=== PATIENT | female | born 2000 | race Caucasian/White ===

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

== ENCOUNTER 2023-03-30 22:24 | Inpatient (IN) ==
[2023-03-30] MEDS ORDERED: SODIUM CHLORIDE 0.9% 500 ML IV STA (22:35)
[2023-03-30 23:01] LABS: Appearance Urine Cloudy (Clear); Bacteria Urine Automated 1+ (Negative); Bilirubin Urine Negative (Negative); Blood Urine 2+ (Negative); Color Urine Dark Yellow; Epithelial Cell Urine Auto >30 /lpf (0-5); Glucose Urine UA Negative (Negative); Ketones Urine Negative (Negative); Leukocyte Esterase Urine Trace (Negative); Nitrite Urine Negative (Negative); Protein Urine 2+ (Negative); Specific Gravity Urine 1.024 (1.000-1.030); Urobilinogen Urine Negative (Negative); pH Urine 5.5 (4.5-7.5)
[2023-03-30 23:04] LABS: Basophils # (auto) 0.04 K/uL (0.00-0.20); Basophils % (auto) 0.4 %; Eosinophils # (auto) 0.61 K/uL (0.00-0.50); Eosinophils % (auto) 6.4 %; Hematocrit (blood only) 40.9 % (37.0-47.0); Hemoglobin 14.6 g/dl (12.0-16.0); Immature Granulocytes # (auto) 0.03 K/uL (0.01-0.20); Immature Granulocytes % (auto) 0.3 %; Lymphocytes # (auto) 2.23 K/uL (1.20-3.40); Lymphocytes % (auto) 23.5 %; Mean Corpuscular Hemoglobin 32.5 pg (25.0-34.0); Mean Corpuscular Hgb Conc 35.7 g/dL (32.0-36.0); Mean Corpuscular Volume 91.1 fL (80.0-100.0); Mean Platelet Volume 11.4 fL (9.4-12.4); Monocytes # (auto) 0.75 K/uL (0.11-0.59); Monocytes % (auto) 7.9 %; Neutrophils # (auto) 5.82 K/uL (1.40-6.50); Neutrophils % (auto) 61.5 %; Platelet Count 245 K/uL (130-400); RDW Coefficient of Variation 12.1 % (11.5-14.5); RDW Standard Deviation 39.9 fL (36.4-46.3); Red Blood Count 4.49 M/uL (4.20-5.40); White Blood Count 9.48 K/ul (4.8-10.8)
[2023-03-30 23:20] LABS: Albumin Globulin Ratio 1.5 (0.9-2); Albumin Level 4.7 gm/dl (3.4-5.0); Bilirubin,Total 0.6 mg/dl (0.2-1.0); Calcium 9.5 mg/dl (8.6-10.3); Creatinine Clr Calc Pharmacy 113.4 ml/min; Est GFR (African American) 132.1 ml/min; Est GFR (Non-African American) 113.9 ml/min; Globulin 3.1 gm/dl (2.5-4.0); Potassium 3.8 mmol/L (3.5-5.1); Total Protein 7.8 gm/dl (6.0-8.3)
[2023-03-31] MEDS ORDERED: cefTRIAXone SODIUM 2,000 MG/50 ML BAG IV STA (00:35)
[2023-03-31] MEDS ORDERED: SODIUM CHLORIDE 0.9% 1,000 ML IV ONE (00:35)
[2023-03-31] MEDS ORDERED: ACETAMINOPHEN 1,000 MG/100 ML VIAL IV STA (00:36)
[2023-03-31] MEDS ORDERED: KETOROLAC TROMETHAMINE 15 MG/ML VIAL IV STA (00:36)
[2023-03-31] MEDS ORDERED: OPTIRAY 320 100ml IV ONE (01:18)
[2023-03-31 01:28] LABS: Pregnancy Test, Serum Negative (Negative)
--- NOTE | 2023-03-31 01:50 | Emergency Department Note ---
History of Present Illness General Chief complaint: Flank Pain Stated complaint: KIDNEY PAIN Time Seen by Provider: 03/31/23 00:34 History of Present Illness Maximum Pain Intensity: 5 This 22-year-old female with a history of kidney stones and kidney infections presents to the ER complaining of left lower abdominal and flank pain with urinary discomfort for the past few days steadily getting worse. Patient denies chest pain, dyspnea, fevers, vomiting, diarrhea, trauma to the area. No other concerns per patient. Home Medications Medication Instructions Recorded Confirmed Type epinephrine 0.3 mg/0.3 mL See Rx Instructions .Route .COMPLEX 02/23/19 03/31/23 History injection, auto-injector albuterol sulfate 90 mcg/actuation 2 puff inhalation QID PRN Wheezing 03/31/23 03/31/23 History aerosol inhaler levonorgestrel 17.5 mcg/24 hrs 1 device intrauterine ONCE 03/31/23 03/31/23 History (5yrs) 19.5mg intrauterine device (Kyleena) Allergies Allergy/AdvReac Type Severity Reaction Status Date / Time birch Allergy Unknown . Verified 02/23/19 10:08 Past Med/Surg History Medical History (Updated 03/31/23 @ 04:09 by Lauren Ponce PA-C) Closed head injury with brief loss of consciousness Fall History of asthma History of retropharyngeal abscess Injury of low back Laceration of ear Laceration of foot Laceration of lower extremity Right distal ureteral calculus Torus fracture of right wrist Surgical History No pertinent past surgical history Family History Other Diabetes Heart disease Hypertension Social History Smoking Status: Never smoker Hx Alcohol Use: No Hx Substance Use: Yes Last Used Substance Other:: one week ago Preferred Language: Serbian Communication Ability: Effective [employer] Paralegal Required: Yes Beliefs That Will Affect Care: None Feels Safe at Home: Yes Assistive Devices: None Review of Systems A total of 10 systems reviewed and were otherwise negative Physical Exam Vital Signs Vital Signs - 24 hr 03/30/23 22:27 03/31/23 01:39 Temperature 36.9 C Temperature Source Temporal Artery Scan Pulse Rate 91 H Pulse Rate [Apical] 65 Respiratory Rate 18 16 Respiratory Effort / Characteristics Non-Labored Spontaneous Respiratory Depth Normal Respiratory Pattern Regular Blood Pressure 138/92 Blood Pressure [Left Arm] 125/70 Blood Pressure Mean 107 Blood Pressure Mean [Left Arm] 88 Blood Pressure Position Sitting Blood Pressure Position [Left Arm] Semi-fowlers Pulse Oximetry 97 97 Oxygen Delivery Method Room Air Room Air Sepsis Recent Fever Within 48 Hours No Sepsis New/Unexplained Change in Mental Status N/A Sepsis Action Taken by Nursing No Action Required VITALS: Vitals are noted on the nurse's note and reviewed by myself. Vital signs stable. GENERAL: Pleasant female with friend present, in no acute distress, nondiaphoretic, well-developed well-nourished. SKIN: The skin was without rashes, erythema, edema, or bruising. There is no tenting of the skin. Capillary reflex less than 2 seconds. HEAD: Normocephalic atraumatic. EARS: External auditory canals clear, EYES: Pupils equal round and reactive to light and accommodation. Conjunctivae without injection, sclerae without icterus. Extraocular movements intact. NOSE: Patent, turbinates without inflammation or discharge. MOUTH: Mucous membranes moist. Pharynx without erythema or exudate. Uvula midline. Airway patent. Tongue does not deviate. NECK: Supple without nuchal rigidity. No lymphadenopathy. No thyromegaly. Cervical spine is nontender. No JVD. HEART: Regular rate and rhythm LUNGS: Clear to auscultation bilaterally without wheezes, rales or rhonchi. No retractions or accessory muscle use. ABDOMEN: Positive bowel sounds x 4. Normal tympanic percussion. Soft, tender left lower quadrant, left CVA tenderness, without masses or organomegaly. Funes sign negative. No guarding or rebound tenderness. No right CVA tenderness MUSCULOSKELETAL: No muscle atrophy, erythema, or edema noted. NEURO: Patient was alert and oriented to person place and time. Normal sensation to light and sharp touch. No focal neurological deficits. Course Administered Medications Discontinued Medications Sodium Chloride (Nss) 500 mls @ 999 mls/hr IV .Q31M STA Stop: 03/30/23 23:05 Last Infusion: 03/31/23 02:02 Dose: 0 mls/hr Documented By: Admin: 03/31/23 01:36 Dose: 999 mls/hr Documented By: Ceftriaxone Sodium (Rocephin) 2,000 mg in 50 mls @ 100 mls/hr IV NOW STA Stop: 03/31/23 01:04 Last Infusion: 03/31/23 02:42 Dose: 0 mls/hr Documented By: Admin: 03/31/23 01:59 Dose: 100 mls/hr Documented By: Sodium Chloride (Nss) 1,000 mls @ 999 mls/hr IV .Q1H1M ONE Stop: 03/31/23 01:35 Last Infusion: 03/31/23 03:27 Dose: 0 mls/hr Documented By: Admin: 03/31/23 01:59 Dose: 999 mls/hr Documented By: Acetaminophen (Ofirmev) 1,000 mg in 100 mls @ 400 mls/hr IV NOW STA Stop: 03/31/23 00:50 Last Infusion: 03/31/23 02:01 Dose: 0 mls/hr Documented By: Admin: 03/31/23 01:36 Dose: 400 mls/hr Documented By: Ioversol (Optiray 320 100ml) 100 ml IV ONCE ONE Stop: 03/31/23 01:19 Last Admin: 03/31/23 01:18 Dose: 91 ml Documented By: JEFF Ketorolac Tromethamine (Ketorolac Tromethamine 15 Mg/Ml Vial) 10 mg IV NOW STA Stop: 03/31/23 00:37 Last Admin: 03/31/23 00:45 Dose: 10 mg Documented By: Medical Decision Making Medical Records Attestation: I reviewed the patient's medical records. Home Medications Current Medication List: was personally reviewed by [place] Laboratory Data Attestation: I reviewed the patient's lab results. 03/30/23 22:44 03/30/23 22:44 Lab Results 03/30/23 03/30/23 03/30/23 Range/Units 22:40 22:44 22:44 WBC 9.48 (4.8-10.8) K/ul RBC 4.49 (4.20-5.40) M/uL Hgb 14.6 (12.0-16.0) g/dl Hct 40.9 (37.0-47.0) % MCV 91.1 (80.0-100.0) fL MCH 32.5 (25.0-34.0) pg MCHC 35.7 (32.0-36.0) g/dL RDW Std Deviation 39.9 (36.4-46.3) fL RDW Coeff of Antoinette 12.1 (11.5-14.5) % Plt Count 245 (130-400) K/uL MPV 11.4 (9.4-12.4) fL Immature Gran % (Auto) 0.3 % Neut % (Auto) 61.5 % Lymph % (Auto) 23.5 % Dickenson % (Auto) 7.9 % Eos % (Auto) 6.4 % Baso % (Auto) 0.4 % Neut # (Auto) 5.82 (1.40-6.50) K/uL Lymph # (Auto) 2.23 (1.20-3.40) K/uL Dickenson # (Auto) 0.75 H (0.11-0.59) K/uL Eos # (Auto) 0.61 H (0.00-0.50) K/uL Baso # (Auto) 0.04 (0.00-0.20) K/uL Immature Gran # (Auto) 0.03 (0.01-0.20) K/uL Sodium 137 (136-145) mmol/L Potassium 3.8 (3.5-5.1) mmol/L Chloride 105 (98-107) mmol/L Carbon Dioxide 24 (21-32) mmol/L Anion Gap 8 (3-11) BUN 12 (6-23) mg/dl Creatinine 0.75 (0.6-1.2) mg/dl Est Cr Clr Drug Dosing 113.4 ml/min Est GFR ( Amer) 132.1 ml/min Est GFR (Non-Af Amer) 113.9 ml/min BUN/Creatinine Ratio 16.0 (10-20) Glucose 135 H (70-99(Fasting)) mg/dl Calcium 9.5 (8.6-10.3) mg/dl Total Bilirubin 0.6 (0.2-1.0) mg/dl AST 23 (13-39) U/L ALT 17 (7-52) U/L Alkaline Phosphatase 99 (34-104) U/L Total Protein 7.8 (6.0-8.3) gm/dl Albumin 4.7 (3.4-5.0) gm/dl Globulin 3.1 (2.5-4.0) gm/dl Albumin/Globulin Ratio 1.5 (0.9-2) HCG, Qual (Negative) Urine Color Dark Yellow Urine Appearance Cloudy A (Clear) Urine pH 5.5 (4.5-7.5) Ur Specific Reform 1.024 (1.000-1.030) Urine Protein 2+ H (Negative) Urine Glucose (UA) Negative (Negative) Urine Ketones Negative (Negative) Urine Blood 2+ H (Negative) Urine Nitrite Negative (Negative) Urine Bilirubin Negative (Negative) Urine Urobilinogen Negative (Negative) Ur Leukocyte Esterase Trace H (Negative) Urine WBC (Auto) 10-30 H (0-5) /hpf Urine RBC (Auto) 10-30 H (0-4) /hpf U Hyaline Cast (Auto) 10-30 H (0-5) /lpf U Epithel Cells (Auto) >30 H (0-5) /lpf Urine Bacteria (Auto) 1+ H (Negative) POC Ur Test (NEG) 03/30/23 03/31/23 Range/Units 22:44 00:55 WBC (4.8-10.8) K/ul RBC (4.20-5.40) M/uL Hgb (12.0-16.0) g/dl Hct (37.0-47.0) % MCV (80.0-100.0) fL MCH (25.0-34.0) pg MCHC (32.0-36.0) g/dL RDW Std Deviation (36.4-46.3) fL RDW Coeff of Antoinette (11.5-14.5) % Plt Count (130-400) K/uL MPV (9.4-12.4) fL Immature Gran % (Auto) % Neut % (Auto) % Lymph % (Auto) % Dickenson % (Auto) % Eos % (Auto) % Baso % (Auto) % Neut # (Auto) (1.40-6.50) K/uL Lymph # (Auto) (1.20-3.40) K/uL Dickenson # (Auto) (0.11-0.59) K/uL Eos # (Auto) (0.00-0.50) K/uL Baso # (Auto) (0.00-0.20) K/uL Immature Gran # (Auto) (0.01-0.20) K/uL Sodium (136-145) mmol/L Potassium (3.5-5.1) mmol/L Chloride (98-107) mmol/L Carbon Dioxide (21-32) mmol/L Anion Gap (3-11) BUN (6-23) mg/dl Creatinine (0.6-1.2) mg/dl Est Cr Clr Drug Dosing ml/min Est GFR ( Amer) ml/min Est GFR (Non-Af Amer) ml/min BUN/Creatinine Ratio (10-20) Glucose (70-99(Fasting)) mg/dl Calcium (8.6-10.3) mg/dl Total Bilirubin (0.2-1.0) mg/dl AST (13-39) U/L ALT (7-52) U/L Alkaline Phosphatase (34-104) U/L Total Protein (6.0-8.3) gm/dl Albumin (3.4-5.0) gm/dl Globulin (2.5-4.0) gm/dl Albumin/Globulin Ratio (0.9-2) HCG, Qual Negative (Negative) Urine Color Urine Appearance (Clear) Urine pH (4.5-7.5) Ur Specific Reform (1.000-1.030) Urine Protein (Negative) Urine Glucose (UA) (Negative) Urine Ketones (Negative) Urine Blood (Negative) Urine Nitrite (Negative) Urine Bilirubin (Negative) Urine Urobilinogen (Negative) Ur Leukocyte Esterase (Negative) Urine WBC (Auto) (0-5) /hpf Urine RBC (Auto) (0-4) /hpf U Hyaline Cast (Auto) (0-5) /lpf U Epithel Cells (Auto) (0-5) /lpf Urine Bacteria (Auto) (Negative) POC Ur Test NEG (NEG) Imaging Data Attestation: I personally reviewed and interpreted this imaging study as follows: Radiologist's Impression: Abdomen/Pelvis CT 03/31/23 00:35 Exam(s): CT ABDOMEN + PELVIS With Contrast IV Amt: 91 ML OPTIRAY 320 EXAM: CT Abdomen and Pelvis With Intravenous Contrast CLINICAL HISTORY: Reason for exam: left flank pain, uti. TECHNIQUE: Axial computed tomography images of the abdomen and pelvis with intravenous contrast. CTDI is 14.61 mGy and DLP is 698.34 mGy-cm. Automated exposure control was utilized for the study. A dose lowering technique was utilized adhering to the principles of ALARA. CONTRAST: Patient received 91 ML OPTIRAY 320 of IV contrast COMPARISON: None. FINDINGS: Lung bases: Clear. Liver: Mild fatty infiltration. Gallbladder and bile ducts: Normal gallbladder. No ductal dilation. Pancreas: No ductal dilation. Spleen: Unremarkable. Adrenals: Unremarkable. Kidneys and ureters: Mild left hydroureteronephrosis, secondary to a 1 mm stone in the left ureterovesical junction, nearly entering bladder. No pyelonephritis or perinephric abscess. Mild left ureteral wall enhancement is nonspecific, may be due to obstruction, cannot rule out infected stone. Stomach and bowel: Moderate to severe fecal loading of the colon. No obstruction. Appendix: No acute appendicitis. Intraperitoneal space: No free air or fluid. Bones/joints: No acute fracture. Soft tissues: Unremarkable. Vasculature: No aortic aneurysm. Lymph nodes: No enlarged lymph nodes. Bladder: No stones. Reproductive: Unremarkable as visualized. IMPRESSION: 1. 1 mm mildly obstructing stone in the left UVJ. 2. Mildly enhancing left ureter, nonspecific, cannot rule out infected stone. No pyelonephritis or perinephric abscess. Electronically signed by: Rosie Bailey M.D. 03/31/23 03:49 AM MDM Narrative Prior records/ancillary studies reviewed. Triage Nursing notes reviewed. Additional history obtained from nursing. The patient's history was concerning for abdominal pain. Differential diagnosis: Etiologies such as appendicitis, diverticulitis, PUD, biliary pathology, UTI, pancreatitis, obstruction, mesenteric ischemia, aortic pathology, infections, inflammatory bowel disease, renal colic, as well as others were entertained. Physical examination findings: As above. ER treatment provided: An order was placed for continuous cardiac monitoring. The monitor shows a rate of 60-100 with a sinus rhythm per my Independent interpretation. IV fluids, Zofran, Toradol, Rocephin was ordered On reassessment the patient felt better. Diagnostics interpreted by me: The labs Independently Interpreted by myself revealed no worrisome leukocytosis, urine concerning for infection sent for culture. Negative hCG No prior urine culture for review Imaging studies: CT the abdomen pelvis concerning for left 1 bilateral mildly obstructing stone at the left UVJ and concerns for bladder infection per my independent interpretation and report was reviewed as above. Consultation: A consultation was placed with the hospitalist. The case was discussed and diagnostics were reviewed. The patient was evaluated in the ER for further treatment. Exam and history seem consistent with infected kidney stone. Patient was started on antibiotics as above. Labs and diagnostics are independent turbid by myself. Medicine is consulted and case discussed. Patient be mated to the medical service for further evaluation and treatment. Patient is agreeable. She was afebrile nontoxic. She is well-appearing. No other concerns per patient. By the evaluation outlined above emergent etiologies such as appendi citis, diverticulitis, PUD, biliary pathology, pancreatitis, obstruction, mesenteric ischemia, aortic pathology, inflammatory bowel disease, as well as others were deemed relatively unlikely. The pt informed about the findings as listed above. All questions were answered and pleased with the treatment. The chart was completed utilizing [employer] Speech voice recognition software. Grammatical errors, random word insertions, pronoun errors, and incomplete sentences are an occassional consequence of this system due to software limitations, ambient noise, and hardware issues. Any formal questions or concerns about the content, text, or information contained within the body of this dictation should be directly addressed to the physician higher level teaching assistant for clarification. Impression & Plan Renal colic on left side, Ureterolithiasis, Acute UTI Discharge Plan Visit Data Chief Complaint: Flank Pain Stated Complaint: KIDNEY PAIN ED Provider: Ly Ponce ED Midlevel Provider: Lauren Ponce Discharge Problem: Renal colic on left side, Ureterolithiasis, Acute UTI Patient Disposition: Admitted As Inpatient Condition: Good Forms Stand Alone Forms: [employer] Prescriptions Prescriptions: No Action epinephrine 0.3 mg/0.3 mL auto-injector See Rx Instructions .ROUTE .COMPLEX Rx Instructions: (directions unknown) To use for Birch Allergy Kyleena 17.5 mcg/24 hrs (5 yrs) 19.5 mg intrauterine device 1 device INTRAUTERINE ONCE albuterol sulfate 90 mcg/actuation HFA aerosol inhaler 2 puff INHALATION QID PRN (Reason: Wheezing) Referrals Referrals: Kaz Stein MD [Primary Care Provider] -
--- NOTE | 2023-03-31 03:49 | CT Scan Report ---
Exam(s): CT ABDOMEN + PELVIS With Contrast IV Amt: 91 ML OPTIRAY 320 EXAM: CT Abdomen and Pelvis With Intravenous Contrast CLINICAL HISTORY: Reason for exam: left flank pain, uti. TECHNIQUE: Axial computed tomography images of the abdomen and pelvis with intravenous contrast. CTDI is 14.61 mGy and DLP is 698.34 mGy-cm. Automated exposure control was utilized for the study. A dose lowering technique was utilized adhering to the principles of ALARA. CONTRAST: Patient received 91 ML OPTIRAY 320 of IV contrast COMPARISON: None. FINDINGS: Lung bases: Clear. Liver: Mild fatty infiltration. Gallbladder and bile ducts: Normal gallbladder. No ductal dilation. Pancreas: No ductal dilation. Spleen: Unremarkable. Adrenals: Unremarkable. Kidneys and ureters: Mild left hydroureteronephrosis, secondary to a 1 mm stone in the left ureterovesical junction, nearly entering bladder. No pyelonephritis or perinephric abscess. Mild left ureteral wall enhancement is nonspecific, may be due to obstruction, cannot rule out infected stone. Stomach and bowel: Moderate to severe fecal loading of the colon. No obstruction. Appendix: No acute appendicitis. Intraperitoneal space: No free air or fluid. Bones/joints: No acute fracture. Soft tissues: Unremarkable. Vasculature: No aortic aneurysm. Lymph nodes: No enlarged lymph nodes. Bladder: No stones. Reproductive: Unremarkable as visualized. IMPRESSION: 1. 1 mm mildly obstructing stone in the left UVJ. 2. Mildly enhancing left ureter, nonspecific, cannot rule out infected stone. No pyelonephritis or perinephric abscess. Electronically signed by: Rosie Bailey M.D. 03/31/23 03:49 AM
[2023-03-31] MEDS ORDERED: ONDANSETRON INJ 2 MG/ML 2 ML VIAL IV STA (04:08)
--- NOTE | 2023-03-31 06:02 | History & Physical Report ---
Date of Service March 31, 2023 Assessment & Plan (1) Renal colic on left side: Plan: Renal colic on left side History of kidney stones Ct scan: 1. 1 mm mildly obstructing stone in the left UVJ. 2. Mildly enhancing left ureter, nonspecific, cannot rule out infected stone. No pyelonephritis or perinephric abscess. N.p.o., IV fluids. IV Rocephin, IV Toradol as needed Urology consult History of asthma Albuterol as needed DVT prophylax SCDs Disposition MedSurg Full code History of Present Illness Chief Complaint: Left renal colic Primary Care Provider: Kaz Stein MD 22-year-old female with past med significant for asthma mild persistent, history of depression, history of kidney stones presents with left flank pain since Thursday associated with nausea and vomiting. No fevers ,no hematuria,no chest pain or shortness of breath. No cough, no other complaints.. Past medical history as mentioned above Past surgical history. Colonoscopy. EGD. Hemorrhoidectomy. Social history. No smoking. No alcohol. No drug use. Family history. Mother has allergies. Depression. Maternal grandfather had celiac disease and hypertension Allergies Allergy/AdvReac Type Severity Reaction Status Date / Time birch Allergy Unknown . Verified 02/23/19 10:08 Home Medications Medication Instructions Recorded Confirmed Type epinephrine 0.3 mg/0.3 mL See Rx Instructions .Route .COMPLEX 02/23/19 03/31/23 History injection, auto-injector albuterol sulfate 90 mcg/actuation 2 puff inhalation QID PRN Wheezing 03/31/23 03/31/23 History aerosol inhaler levonorgestrel 17.5 mcg/24 hrs 1 device intrauterine ONCE 03/31/23 03/31/23 History (5yrs) 19.5mg intrauterine device (Kyleena) Past Med/Surg History Medical History (Updated 03/31/23 @ 04:09 by Lauren Ponce PA-C) Closed head injury with brief loss of consciousness Fall History of asthma History of retropharyngeal abscess Injury of low back Laceration of ear Laceration of foot Laceration of lower extremity Right distal ureteral calculus Torus fracture of right wrist Surgical History No pertinent past surgical history Family History Other Diabetes Heart disease Hypertension Social History Smoking Status: Current every day smoker Tobacco Type: E-cigarettes / Vaping Hx Alcohol Use: Yes Hx Substance Use: No Preferred Language: Nicaraguan Communication Ability: Effective Windscreen Fitter Required: No Beliefs That Will Affect Care: None Current Living Situation: Parent Other Information That Helps Us Care for You: No Feels Safe at Home: Yes Safety Concerns: Feels Safe At This Time Assistive Devices: Glasses Review of Systems Review of Systems: All systems reviewed & are unremarkable except as noted in HPI & below Physical Exam Physical Exam: General- Not in distress Head- atraumatic Eyes- PERRL. ENT- oropharynx clear Neck- supple, no JVD. Lungs- clear to auscultation , no wheezing or crackles Heart- regular rhythm; no murmur, no gallop. Abdomen- normal bowel sounds, soft, nontender, no distension Extremities- no pretibial edema, no erythema seen. Neuro- alert, oriented ; PERRL, no facial palsy; no dysarthria;. Skin- warm & dry Results & Data Results & Data Vital Signs (Past 12 Hours) Vital Signs Temp Pulse Pulse Resp BP BP Pulse Ox 03/31/23 05:01 63 18 119/68 96 03/31/23 04:30 64 13 129/98 97 03/31/23 04:13 73 20 127/93 97 03/31/23 04:02 78 98 03/31/23 01:39 65 16 125/70 97 03/30/23 22:27 36.9 C 91 H 18 138/92 97 O2 Del Method 03/31/23 05:01 Room Air 03/31/23 04:30 Room Air 03/31/23 04:13 Room Air 03/31/23 04:02 Room Air 03/31/23 01:39 Room Air 03/30/23 22:27 Room Air Diagnostic Findings Laboratory Results WBC 9.48 K/ul (4.8-10.8) 03/30/23 22:44 RBC 4.49 M/uL (4.20-5.40) 03/30/23 22:44 Hgb 14.6 g/dl (12.0-16.0) 03/30/23 22:44 Hct 40.9 % (37.0-47.0) 03/30/23 22:44 MCV 91.1 fL (80.0-100.0) 03/30/23 22:44 MCH 32.5 pg (25.0-34.0) 03/30/23 22:44 MCHC 35.7 g/dL (32.0-36.0) 03/30/23 22:44 RDW Std Deviation 39.9 fL (36.4-46.3) 03/30/23 22:44 RDW Coeff of Antoinette 12.1 % (11.5-14.5) 03/30/23 22:44 Plt Count 245 K/uL (130-400) 03/30/23 22:44 MPV 11.4 fL (9.4-12.4) 03/30/23 22:44 Immature Gran % (Auto) 0.3 % 03/30/23 22:44 Neut % (Auto) 61.5 % 03/30/23 22:44 Lymph % (Auto) 23.5 % 03/30/23 22:44 Sebastian % (Auto) 7.9 % 03/30/23 22:44 Eos % (Auto) 6.4 % 03/30/23 22:44 Baso % (Auto) 0.4 % 03/30/23 22:44 Neut # (Auto) 5.82 K/uL (1.40-6.50) 03/30/23 22:44 Lymph # (Auto) 2.23 K/uL (1.20-3.40) 03/30/23 22:44 Sebastian # (Auto) 0.75 K/uL (0.11-0.59) H 03/30/23 22:44 Eos # (Auto) 0.61 K/uL (0.00-0.50) H 03/30/23 22:44 Baso # (Auto) 0.04 K/uL (0.00-0.20) 03/30/23 22:44 Immature Gran # (Auto) 0.03 K/uL (0.01-0.20) 03/30/23 22:44 Sodium 137 mmol/L (136-145) 03/30/23 22:44 Potassium 3.8 mmol/L (3.5-5.1) 03/30/23 22:44 Chloride 105 mmol/L (98-107) 03/30/23 22:44 Carbon Dioxide 24 mmol/L (21-32) 03/30/23 22:44 Anion Gap 8 (3-11) 03/30/23 22:44 BUN 12 mg/dl (6-23) 03/30/23 22:44 Creatinine 0.75 mg/dl (0.6-1.2) 03/30/23 22:44 Est Cr Clr Drug Dosing 113.4 ml/min 03/30/23 22:44 Est GFR ( Amer) 132.1 ml/min 03/30/23 22:44 Est GFR (Non-Af Amer) 113.9 ml/min 03/30/23 22:44 BUN/Creatinine Ratio 16.0 (10-20) 03/30/23 22:44 Glucose 135 mg/dl (70-99(Fasting)) H 03/30/23 22:44 Calcium 9.5 mg/dl (8.6-10.3) 03/30/23 22:44 Total Bilirubin 0.6 mg/dl (0.2-1.0) 03/30/23 22:44 AST 23 U/L (13-39) 03/30/23 22:44 ALT 17 U/L (7-52) 03/30/23 22:44 Alkaline Phosphatase 99 U/L (34-104) 03/30/23 22:44 Total Protein 7.8 gm/dl (6.0-8.3) 03/30/23 22:44 Albumin 4.7 gm/dl (3.4-5.0) 03/30/23 22:44 Globulin 3.1 gm/dl (2.5-4.0) 03/30/23 22:44 Albumin/Globulin Ratio 1.5 (0.9-2) 03/30/23 22:44 HCG, Qual Negative (Negative) 03/30/23 22:44 Urine Color Dark Yellow 03/30/23 22:40 Urine Appearance Cloudy (Clear) A 03/30/23 22:40 Urine pH 5.5 (4.5-7.5) 03/30/23 22:40 Ur Specific [place] 1.024 (1.000-1.030) 03/30/23 22:40 Urine Protein 2+ (Negative) H 03/30/23 22:40 Urine Glucose (UA) Negative (Negative) 03/30/23 22:40 Urine Ketones Negative (Negative) 03/30/23 22:40 Urine Blood 2+ (Negative) H 03/30/23 22:40 Urine Nitrite Negative (Negative) 03/30/23 22:40 Urine Bilirubin Negative (Negative) 03/30/23 22:40 Urine Urobilinogen Negative (Negative) 03/30/23 22:40 Ur Leukocyte Esterase Trace (Negative) H 03/30/23 22:40 Urine WBC (Auto) 10-30 /hpf (0-5) H 03/30/23 22:40 Urine RBC (Auto) 10-30 /hpf (0-4) H 03/30/23 22:40 U Hyaline Cast (Auto) 10-30 /lpf (0-5) H 03/30/23 22:40 U Epithel Cells (Auto) >30 /lpf (0-5) H 03/30/23 22:40 Urine Bacteria (Auto) 1+ (Negative) H 03/30/23 22:40 POC Ur Test NEG (NEG) 03/31/23 00:55 Impressions Abdomen/Pelvis CT 03/31/23 00:35 Exam(s): CT ABDOMEN + PELVIS With Contrast IV Amt: 91 ML OPTIRAY 320 EXAM: CT Abdomen and Pelvis With Intravenous Contrast CLINICAL HISTORY: Reason for exam: left flank pain, uti. TECHNIQUE: Axial computed tomography images of the abdomen and pelvis with intravenous contrast. CTDI is 14.61 mGy and DLP is 698.34 mGy-cm. Automated exposure control was utilized for the study. A dose lowering technique was utilized adhering to the principles of ALARA. CONTRAST: Patient received 91 ML OPTIRAY 320 of IV contrast COMPARISON: None. FINDINGS: Lung bases: Clear. Liver: Mild fatty infiltration. Gallbladder and bile ducts: Normal gallbladder. No ductal dilation. Pancreas: No ductal dilation. Spleen: Unremarkable. Adrenals: Unremarkable. Kidneys and ureters: Mild left hydroureteronephrosis, secondary to a 1 mm stone in the left ureterovesical junction, nearly entering bladder. No pyelonephritis or perinephric abscess. Mild left ureteral wall enhancement is nonspecific, may be due to obstruction, cannot rule out infected stone. Stomach and bowel: Moderate to severe fecal loading of the colon. No obstruction. Appendix: No acute appendicitis. Intraperitoneal space: No free air or fluid. Bones/joints: No acute fracture. Soft tissues: Unremarkable. Vasculature: No aortic aneurysm. Lymph nodes: No enlarged lymph nodes. Bladder: No stones. Reproductive: Unremarkable as visualized. IMPRESSION: 1. 1 mm mildly obstructing stone in the left UVJ. 2. Mildly enhancing left ureter, nonspecific, cannot rule out infected stone. No pyelonephritis or perinephric abscess. Electronically signed by: Rosie Bailey M.D. 03/31/23 03:49 AM Code Status & VTE Plan VTE Prophylaxis Plan VTE Prophylaxis will be ordered: Yes
[2023-03-31] MEDS ORDERED: ACETAMINOPHEN 325 MG TAB PO PRN (06:21)
[2023-03-31] MEDS ORDERED: KETOROLAC TROMETHAMINE 15 MG/ML VIAL IV PRN (06:21)
[2023-03-31] MEDS ORDERED: ONDANSETRON INJ 2 MG/ML 2 ML VIAL IV PRN (06:21)
[2023-03-31] MEDS ORDERED: ALBUTEROL HFA 8 GM INHALER INH PRN (06:21)
[2023-03-31] MEDS ORDERED: POLYETHYLENE (MIRALAX) 17 GM PACK PO PRN (06:21)
[2023-03-31] MEDS: SODIUM CHLORIDE 0.9% 1,000 ML IV SCH ×2 (06:38→13:33)
[2023-03-31 07:43] LABS: Basophils # (auto) 0.02 K/uL (0.00-0.20); Basophils % (auto) 0.3 %; Eosinophils # (auto) 0.62 K/uL (0.00-0.50); Eosinophils % (auto) 9.4 %; Hematocrit (blood only) 36.9 % (37.0-47.0); Immature Granulocytes # (auto) 0.01 K/uL (0.01-0.20); Immature Granulocytes % (auto) 0.2 %; Lymphocytes # (auto) 1.85 K/uL (1.20-3.40); Lymphocytes % (auto) 27.9 %; Mean Corpuscular Hemoglobin 32.2 pg (25.0-34.0); Mean Corpuscular Hgb Conc 35.2 g/dL (32.0-36.0); Mean Corpuscular Volume 91.3 fL (80.0-100.0); Mean Platelet Volume 10.8 fL (9.4-12.4); Monocytes # (auto) 0.61 K/uL (0.11-0.59); Monocytes % (auto) 9.2 %; Neutrophils # (auto) 3.51 K/uL (1.40-6.50); Platelet Count 207 K/uL (130-400); RDW Coefficient of Variation 12.1 % (11.5-14.5); RDW Standard Deviation 40.4 fL (36.4-46.3); Red Blood Count 4.04 M/uL (4.20-5.40); White Blood Count 6.62 K/ul (4.8-10.8)
[2023-03-31 07:59] LABS: Anion Gap 6 (3-11); Blood Urea Nitrogen 9 mg/dl (6-23); Calcium 8.6 mg/dl (8.6-10.3); Carbon Dioxide 24 mmol/L (21-32); Chloride 110 mmol/L (98-107); Creatinine Clr Calc Pharmacy 145.2 ml/min; Est GFR (African American) > 150.0 ml/min; Est GFR (Non-African American) 130.3 ml/min; Glucose 101 mg/dl (70-99(Fasting)); Magnesium 1.9 mg/dl (1.7-2.4); Potassium 3.7 mmol/L (3.5-5.1); Sodium 140 mmol/L (136-145)
--- NOTE | 2023-03-31 10:36 | Urology Consultation ---
Date of Consultation March 31, 2023 Assessment & Plan (1) Renal colic on left side: (2) Ureterolithiasis: (3) UTI (urinary tract infection): Plan 22yo/F admitted with intractable left flank pain, concern for UTI, small left ureteral stone. Afebrile and hemodynamically stable. Labs reviewed No leukocytosis and normal renal function. Urinalysis with 3+ blood, trace LE, 1+ bacteria, urine culture pending. On Ceftriaxone. Discussed options for acute stone management. Discussed cystoscopy, stent placement, possible stone treatment. Ureteral stents were discussed as well as postoperative issues and pain management. Discussed trial of passage with max medical therapy. Discussed stone passage rates given size and location. Risks and benefits of each were discussed. Patient prefers trial of passage with max expulsion therapy which is reasonable given stone size and location. No plan for urological intervention at this time. Continue supportive care, pain management, antibiotics. Strain all urine. Urology will follow. History of Present Illness Attending Physician: Abiel Bernabe MD History of Present Illness 22-year-old female with past medical hx significant for asthma, history of depression, history of kidney stones who presented to the ED with left flank pain since Thursday with associated nausea andvomiting. On arrival she was afebrile and hemodynamically stable. Labs showing no leukocytosis and normal renal function. Urinalysis with 2+ blood, trace LE, 1+ bacteria, negative nitrite. Urine culture pending. CT abdomen pelvis obtained and notable for a 1 mm mild obstructive stone in the left UVJ. Patient admitted to medicine service for pain management. CT abdomen pelvis 1. 1 mm mildly obstructing stone in the left UVJ. 2. Mildly enhancing left ureter, nonspecific, cannot rule out infected stone. No pyelonephritis or perinephric abscess. Patient examined at bedside this AM. Awake, resting in bed on arrival. No acute distress. Reports pain has significantly improved since arrival. Denies fevers, chills, nausea, vomiting at present. Voiding without issue. Denies hematuria, some dysuria. Has been NPO. Patient reports a history of stones with spontaneous passage. Allergies Allergy/AdvReac Type Severity Reaction Status Date / Time birch Allergy Unknown . Verified 02/23/19 10:08 Home Medications Medication Instructions Recorded Confirmed Type epinephrine 0.3 mg/0.3 mL See Rx Instructions .Route .COMPLEX 02/23/19 03/31/23 History injection, auto-injector albuterol sulfate 90 mcg/actuation 2 puff inhalation QID PRN Wheezing 03/31/23 03/31/23 History aerosol inhaler levonorgestrel 17.5 mcg/24 hrs 1 device intrauterine ONCE 03/31/23 03/31/23 History (5yrs) 19.5mg intrauterine device (Kyleena) Patient History Medical History (Updated 03/31/23 @ 04:09 by Lauren Ponce PA-C) Closed head injury with brief loss of consciousness Fall History of asthma History of retropharyngeal abscess Injury of low back Laceration of ear Laceration of foot Laceration of lower extremity Right distal ureteral calculus Torus fracture of right wrist Surgical History No pertinent past surgical history Family History Other Diabetes Heart disease Hypertension Social History Smoking Status: Current every day smoker Tobacco Type: E-cigarettes / Vaping Hx Alcohol Use: Yes Hx Substance Use: No Preferred Language: Swedish Communication Ability: Effective Cardiac Rehabilitation Specialist Required: No Beliefs That Will Affect Care: None Current Living Situation: Parent Other Information That Helps Us Care for You: No Feels Safe at Home: Yes Safety Concerns: Feels Safe At This Time Assistive Devices: Glasses Review of Systems Review of Systems: All systems reviewed & are unremarkable except as noted in HPI & below Physical Exam Constitutional: well developed and well nourished; no acute distress Respiratory: normal respiratory effort; no respiratory distress and no labored breathing Musculoskeletal: Head/Neck/Chest: normocephalic Skin: No visible rashes or lesions to exposed skin areas Neurologic: moves all extremities and awake Psychiatric: A+Ox3, euthymic affect Results & Data Vital Signs (Past 12 Hours) Vital Signs Temp Pulse Pulse Resp BP BP Pulse Ox 03/31/23 08:14 70 15 137/86 97 03/31/23 07:13 62 15 142/99 H 97 03/31/23 06:23 36.6 C 69 18 129/74 97 03/31/23 05:01 63 18 119/68 96 03/31/23 04:30 64 13 129/98 97 03/31/23 04:13 73 20 127/93 97 03/31/23 04:02 78 98 03/31/23 01:39 65 16 125/70 97 03/30/23 22:27 36.9 C 91 H 18 138/92 97 O2 Del Method 03/31/23 08:14 Room Air 03/31/23 07:13 Room Air 03/31/23 06:23 Room Air 03/31/23 05:01 Room Air 03/31/23 04:30 Room Air 03/31/23 04:13 Room Air 03/31/23 04:02 Room Air 03/31/23 01:39 Room Air 03/30/23 22:27 Room Air PG Care Time/CCT Total # of Minutes Spent Total Time Spent with Patient: Total time spent is greater than 50% in coordination of care (as documented) at patient's floor/unit and/or counseling patient: Coding Level of Care Code 36051 IN/OBS CONSULT LVL 3,45M Diagnoses Renal colic on left side N23 Ureterolithiasis N20.1 UTI (urinary tract infection) N39.0 Hematuria presence: without hematuria Urinary tract infection type: site unspecified (3) UTI (urinary tract infection) Hematuria presence: without hematuria Urinary tract infection type: site unspecified Qualified Code(s): N39.0 - Urinary tract infection, site not specified
--- NOTE | 2023-03-31 12:21 | Hospitalist Progress Note ---
Date of Service March 31, 2023 Assessment & Plan (1) Renal colic on left side: Plan: Renal colic on left side History of kidney stones Ct scan: 1. 1 mm mildly obstructing stone in the left UVJ. 2. Mildly enhancing left ureter, nonspecific, cannot rule out infected stone. No pyelonephritis or perinephric abscess. N.p.o., IV fluids. IV Rocephin, IV Toradol as needed UA suggestive of infection-urine culture has been sent and awaiting result Has been on intravenous ceftriaxone Appreciate urology input and recommendation for conservative management Patient is agreeable with that and wants to go home this afternoon She was advised to drink more fluid and see how she feels in the afternoon before going home Condition may get worse that she may need to be back History of asthma Albuterol as needed DVT prophylax SCDs Disposition MedSurg Full code Discussed with the mom and the patient in detail Admission and Anticipated Discharge Date Admission Date: March 31, 2023 Subjective 03/31/2023 Patient was seen and examined in emergency room in presence of the mother Still complains of back pain more on the left than the right side No nausea no vomiting and no fever and or chills Has had dysuria but no blood in the urine Review of Systems Review of Systems: All systems reviewed and are unremarkable except as noted below Physical Exam Physical Exam: Lying in bed with minimal distress due to back pain and hypogastric pain Constitutional: + ill appearing and average body habitus Eyes: PERRL, conjunctivae normal, anicteric sclerae ENMT: external ear and nose normal, oropharynx normal Neck: trachea midline, no thyromegaly Respiratory: no respiratory distress Auscultation: lungs clear to auscultation bilaterally; no crackles Cardiovascular: Rate/Rhythm: regular rate and regular rhythm; not tachycardic Heart Sounds: normal S1 and normal S2; no murmur Extremities: no edema Gastrointestinal (Abdomen): Inspection/Auscultation: normal bowel sounds; abdomen not distended Percussion/Palpation: + abdomen tender (Lower abdomen especially hypogastrium and bilaterally renal angles) Musculoskeletal: No acute arthritis involving any of the joint Neurologic: normal touch/pain/proprioception and moves all extremities; no focal motor deficits Psychiatric: A+Ox3, euthymic affect Lymphatic: no cervical or axillary lymphadenopathy Results & Data Results & Data Vital Signs (Past 12 Hours) Vital Signs Temp Pulse Pulse Resp BP BP Pulse Ox 03/31/23 11:46 63 15 122/81 98 03/31/23 10:44 65 15 131/84 97 03/31/23 09:17 79 15 129/75 98 03/31/23 08:14 70 15 137/86 97 03/31/23 07:13 62 15 142/99 H 97 03/31/23 06:23 36.6 C 69 18 129/74 97 03/31/23 05:01 63 18 119/68 96 03/31/23 04:30 64 13 129/98 97 03/31/23 04:13 73 20 127/93 97 03/31/23 04:02 78 98 03/31/23 01:39 65 16 125/70 97 O2 Del Method 03/31/23 11:46 Room Air 03/31/23 10:44 Room Air 03/31/23 09:17 Room Air 03/31/23 08:14 Room Air 03/31/23 07:13 Room Air 03/31/23 06:23 Room Air 03/31/23 05:01 Room Air 03/31/23 04:30 Room Air 03/31/23 04:13 Room Air 03/31/23 04:02 Room Air 03/31/23 01:39 Room Air Laboratory Results Short CBC 03/30/23 03/31/23 Range/Units 22:44 07:23 WBC 9.48 6.62 (4.8-10.8) K/ul Hgb 14.6 13.0 (12.0-16.0) g/dl Hct 40.9 36.9 L (37.0-47.0) % Plt Count 245 207 (130-400) K/uL BMP 03/30/23 03/31/23 22:44 07:23 Sodium 137 140 Potassium 3.8 3.7 Chloride 105 110 H Carbon Dioxide 24 24 BUN 12 9 Creatinine 0.75 0.60 Glucose 135 H 101 H Calcium 9.5 8.6 Liver Function 03/30/23 Range/Units 22:44 Total Bilirubin 0.6 (0.2-1.0) mg/dl AST 23 (13-39) U/L ALT 17 (7-52) U/L Alkaline Phosphatase 99 (34-104) U/L Albumin 4.7 (3.4-5.0) gm/dl Urine 03/30/23 Range/Units 22:40 Urine Color Dark Yellow Urine Appearance Cloudy A (Clear) Urine pH 5.5 (4.5-7.5) Ur Specific [place] 1.024 (1.000-1.030) Urine Protein 2+ H (Negative) Urine Glucose (UA) Negative (Negative) Medications Administered Current Inpatient Medications Acetaminophen (Acetaminophen 325 Mg Tab) 650 mg PO Q4H PRN PRN Reason: pain/fever Stop: 04/30/23 06:20 Last Admin: 03/31/23 10:24 Dose: 650 mg Albuterol (Albuterol Hfa 8 Gm Inhaler) 2 puffs INH QIDR PRN PRN Reason: Wheezing Stop: 04/30/23 06:20 Sodium Chloride (Nss) 1,000 mls @ 125 mls/hr IV .Q8H MARINA Stop: 04/30/23 06:20 Last Admin: 03/31/23 06:38 Dose: 125 mls/hr Ceftriaxone Sodium 1,000 mg/ (Dextrose) 50 mls @ 100 mls/hr IV Q24H MARINA; Protocol Stop: 04/10/23 22:59 Ketorolac Tromethamine (Ketorolac Tromethamine 15 Mg/Ml Vial) 15 mg IV Q6H PRN PRN Reason: Pain Stop: 04/05/23 06:20 Ondansetron HCl (Ondansetron Inj 2 Mg/Ml 2 Ml Vial) 4 mg IV Q6H PRN PRN Reason: Nausea Stop: 04/30/23 06:20 Polyethylene Glycol (Polyethylene (Miralax) 17 Gm Pack) 17 gm PO DAILY PRN PRN Reason: Constipation Stop: 04/30/23 06:20
[2023-03-31] MEDS ORDERED: cefTRIAXone SODIUM 1,000 MG in DEXTROSE 5 % MINI-B 50 ML IV SCH (23:00)
--- NOTE | 2023-04-01 08:56 | Discharge Summary ---
Date of Service April 01, 2023 Admission HPI Per Admitting Provider 22-year-old female with past med significant for asthma mild persistent, history of depression, history of kidney stones presents with left flank pain since Thursday associated with nausea and vomiting. No fevers ,no hematuria,no chest pain or shortness of breath. No cough, no other complaints.. Past medical history as mentioned above Past surgical history. Colonoscopy. EGD. Hemorrhoidectomy. Social history. No smoking. No alcohol. No drug use. Family history. Mother has allergies. Depression. Maternal grandfather had celiac disease and hypertension Admission Exam Per Admitting Provider Physical Exam: General- Not in distress Head- atraumatic Eyes- PERRL. ENT- oropharynx clear Neck- supple, no JVD. Lungs- clear to auscultation , no wheezing or crackles Heart- regular rhythm; no murmur, no gallop. Abdomen- normal bowel sounds, soft, nontender, no distension Extremities- no pretibial edema, no erythema seen. Neuro- alert, oriented ; PERRL, no facial palsy; no dysarthria;. Skin- warm & dry Principal Diagnosis Left renal colic stone in the distal ureter, possible UTI Discharge Exam Lying in bed with minimal distress due to back pain and hypogastric pain Constitutional + ill appearing and average body habitus Eyes PERRL, conjunctivae normal, anicteric sclerae ENMT external ear and nose normal, oropharynx normal Neck trachea midline, no thyromegaly Respiratory no respiratory distress Auscultation: lungs clear to auscultation bilaterally; no crackles Cardiovascular Rate/Rhythm: regular rate and regular rhythm; not tachycardic Heart Sounds: normal S1 and normal S2; no murmur Extremities: no edema Gastrointestinal (Abdomen) Inspection/Auscultation: normal bowel sounds; abdomen not distended Percussion/Palpation: + abdomen tender (Lower abdomen especially hypogastrium and bilaterally renal angles) Neurologic normal touch/pain/proprioception and moves all extremities; no focal motor deficits Psychiatric A+Ox3, euthymic affect Lymphatic no cervical or axillary lymphadenopathy Discharge Data Allergies Allergy/AdvReac Type Severity Reaction Status Date / Time birch Allergy Unknown . Verified 02/23/19 10:08 Consultations 03/31/23 06:41 ED Decision to Admit Stat 03/31/23 08:00 Consult Urology Routine Ordered Studies 03/31/23 00:35 CT Abd and Pelvis [CT abd pelvis IV con only] Stat Hospital Course (1) Renal colic on left side: Renal colic on left side History of kidney stones Ct scan: 1. 1 mm mildly obstructing stone in the left UVJ. 2. Mildly enhancing left ureter, nonspecific, cannot rule out infected stone. No pyelonephritis or perinephric abscess. N.p.o., IV fluids. IV Rocephin, IV Toradol as needed UA suggestive of infection-urine culture has been sent and awaiting result Has been on intravenous ceftriaxone Appreciate urology input and recommendation for conservative management Patient is agreeable with that and wants to go home this afternoon She was advised to drink more fluid and see how she feels in the afternoon before going home Condition may get worse that she may need to be back History of asthma Albuterol as needed DVT prophylax SCDs Disposition MedSurg Full code Discussed with the mom and the patient in detail Total Time Total Time Spent Total Time Spent (In Minutes): 35 minutes Discharge Plan Discharge Items Patient Disposition: Home - Self-Care Reason For Visit: LEFT RENAL COLIC Discharge Diagnosis: Left renal colic stone in the distal ureter, possible UTI Condition on Discharge: Good Activity: Resume your previous activity Non-emergency contact: Primary Care Provider Call non-emergency contact if: you have any medication questions and your symptoms worsen Follow-up/Referrals: Kaz Stein MD [Primary Care Provider] - (We will call you with an appointment with your PCP within 7 days) Diet: Regular Addtl Attending Provider Instructions: Please finish the course of antibiotic Can try ibuprofen 600 mg 3 times daily with food for pain Try to drink more fluid Urologist office will call you with an appointment Please give appointment with your primary care provider Pending Studies at Discharge: Yes Studies:: Urine culture Stand-Alone Forms: My [employer], Smoking Cessation Medications and DC Order Prescriptions: New cephalexin 500 mg capsule 500 mg PO Q8H 7 Days Qty: 21 0RF tamsulosin [Flomax] 0.4 mg capsule 0.4 mg PO DAILY Qty: 30 0RF Continued epinephrine 0.3 mg/0.3 mL auto-injector See Rx Instructions .ROUTE .COMPLEX Rx Instructions: (directions unknown) To use for Birch Allergy Kyleena 17.5 mcg/24 hrs (5 yrs) 19.5 mg intrauterine device 1 device INTRAUTERINE ONCE albuterol sulfate 90 mcg/actuation HFA aerosol inhaler 2 puff INHALATION QID PRN (Reason: Wheezing) Discharge Orders: Discharge Order (Routine); Ordered 03/31/23 Ordered By: Abiel Bernabe Admission Data Admit Date/Time: 03/31/23 05:55 Attending Provider: Abiel Bernabe Admit Provider: Jorge L Valiente Primary Care Provider: Kaz Stein Other Providers: Elie Wilson ; Reginald Coelho ; Alfredo Carlton ; Berta Mendoza ; Carlos Meléndez ; Aarti Mandujano ; Shaista Weaver ; Rodger Carpio ; Rabia Benito ; Jeet Polo ; Rivas Ramsey ; Jorge L Valiente Other Interventions: Discharge Summary Assessment (RN) Last Done: 03/31/23 17:07
== END 2023-03-31 17:15 | disposition home or self-care (01) | DRG 694 ==
LOC: ED 22:24 → EDINP 03-31 05:55
DX: F17.290 Nicotine dependence, other tobacco product, uncomplicated; U07.0 Vaping-related disorder; J45.30 Mild persistent asthma, uncomplicated; Z87.442 Personal history of urinary calculi; N39.0 Urinary tract infection, site not specified; N20.1 Calculus of ureter